=== PATIENT | female | born 2000 | race Two or more races ===

== ENCOUNTER 2021-12-06 13:17 | Emergency (ER) | payer SELFPAY ==
[2021-12-06] MEDS ORDERED: Sodium Chloride 0.9% 10 ML Syringe FLUSH PRN (14:32)
[2021-12-06] MEDS ORDERED: Sodium Chloride 0.9% 1,000 ML IV ONE (14:33)
[2021-12-06] MEDS ORDERED: Alum Hydrox/Mag Hydrox/Simeth 30 ML, Lidocaine 2% 15 ML PO ONE ×2 (14:37)
[2021-12-06] MEDS ORDERED: Iopamidol 755 Mg/ML 100 ML Bottle IVPUSH ONE (14:40)
[2021-12-06] MEDS ORDERED: Barium Sulfate Oral Susp 450 ML Bottle PO ONE (14:56)
[2021-12-06 15:05] LABS: CHLORIDE,CL 103 mEq/L (98-106); SODIUM,NA 137 mEq/L (136-145)
== END 2021-12-06 17:56 | disposition home or self-care (01) ==
LOC: CC.ED 13:17
DX: T18.9XXA Foreign body of alimentary tract, part unspecified, initial encounter (principal); R10.12 Left upper quadrant pain; Z90.49 Acquired absence of other specified parts of digestive tract; Z20.822 Contact with and (suspected) exposure to COVID-19
CPT/HCPCS: 36415; 71046; 74177; 80053; 81001; 81025; 83605; 83690; 83735; 84484; 85025; 87086; 87804; 93005; 99283; 99284-25; A9270-GY; J7030; U0002